=== PATIENT | female | born 1950 | race Caucasian/White ===

== ENCOUNTER 2017-09-17 14:27 | Emergency (ER) | payer OTHER ==
[~2017-09-17] VITALS: Ht 152.4 cm; Wt 62.1 kg
--- NOTE | 2017-09-17 15:06 | ER.PDOC ---
General Chief Complaint: Extremities Stated Complaint: RIGHT HAND INJURY Time seen by MD: 15:05 Source: patient Exam Limitations: no limitations History of Present Illness Initial Comments Right hand pain from hitting it against a door yesterday. Severity: moderate Modifying Factors: pain on movement Allergies: Coded Allergies: codeine (Verified Allergy, Unknown, 09/17/17) prochlorperazine (Verified Allergy, Unknown, 09/17/17) Past Medical History Medical History: hypertension Surgical History: cholecystectomy Social History Smoking: non-smoker Alcohol Use: none Drug Use: none Review of Systems Constitutional: no symptoms reported Respiratory: no symptoms reported Cardiovascular: no symptoms reported Gastrointestinal: no symptoms reported Musculoskeletal: see HPI All Other Systems: Reviewed and Negative Physical Exam General Appearance: Alert, No Apparent Distress Hand: tenderness (right hand) Wrist: nml inspection, non-tender, nml ROM Neuro: sensation nml, motor nml Vascular: no vascular compromise Tendons: tendon function nml Forearm/Elbow/Arm: uninjured above wrist Head/ENT: nml inspection, pharynx nml Neck/Back: nml inspection, non-tender Resp/CVS: no resp distress, lungs clear, heart sounds nml, reg. rate & rhythm Abdomen: non-tender, no organomegaly EKG/XRAY/CT/US XRAY Comments: No osseous abnormality of right hand Departure Time of Disposition: 15:22 Disposition: 01 HOME, SELF-CARE Impression: Primary Impression: Injury, hand Qualified Codes: S69.91XA - Unspecified injury of right wrist, hand and finger (s), initial encounter Condition: Stable Referrals: PCP,UNKNOWN (PCP) PRIMARY CARE PROVIDER Additional Instructions: Ice Ibuprofen F/U with your PCP next week Duration or Time Spent with Pa: 20 mins TENNILLE KRUSE MD Sep 17, 2017 15:06
--- NOTE | 2017-09-17 15:22 | DIREP ---
PROCEDURE:XRAY HAND MIN 3 VW-RT COMPARISON:None. INDICATIONS:PAIN, SMASHED HAND FINDINGS:AP, lateral, and oblique view. BONES:No fracture. Mild osteopenia. JOINTS:No dislocation. Moderate degenerative changes involving base of the thumb and trapezium. SOFT TISSUES:Soft tissue irregularity that may represent laceration involving the dorsum of the hand. OTHER:No additional findings. CONCLUSION:No acute visible fracture. See above description. Dictated by: Kevyn Ratliff MD on 09/17/2017 at 03:20 PM
[2017-09-17 15:39] VITALS: BP 125/81
== END 2017-09-17 15:32 | disposition home or self-care (01) ==
LOC: ER 14:27
DX: S69.91XA Unspecified injury of right wrist, hand and finger(s), initial encounter (principal); I10 Essential (primary) hypertension; Z88.5 Allergy status to narcotic agent; Z90.49 Acquired absence of other specified parts of digestive tract; W22.8XXA Striking against or struck by other objects, initial encounter; Y93.89 Activity, other specified; Y92.89 Other specified places as the place of occurrence of the external cause; Y99.8 Other external cause status
CPT/HCPCS: 99284; 73130-RT